=== PATIENT | male | born 1970 | race African-American/Black ===

== ENCOUNTER 2016-11-28 16:22 | Emergency (ER) | payer OTHER ==
[~2016-11-28] VITALS: Ht 177.8 cm; Wt 80.0 kg
[2016-11-28 16:36] VITALS: BP 104/88; PULSE 82; RESP 16; TEMP 98; O2SAT 96
== END 2016-11-28 18:56 | disposition left against medical advice (07) ==
LOC: NEPJ 16:22
DX: Z53.21 Procedure and treatment not carried out due to patient leaving prior to being seen by health care provider (principal)
CPT/HCPCS: 99281

== ENCOUNTER 2016-12-06 02:59 | Emergency (ER) | payer OTHER ==
[2016-12-06 03:14] VITALS: BP 135/65; PULSE 85; RESP 14; TEMP 98.5; O2SAT 100
[2016-12-06] MEDS ORDERED: TRAZ300T2 PO (03:18)
--- NOTE | 2016-12-06 03:32 | PD ---
HPI Chief Complaint: Medical Clearance Time Seen by Provider: 03:29 Travel History International Travel<30 days: No Contact w/Intl Traveler<30days: No Traveled to known affect area: No History of Present Illness HPI 46-year-old black male presents to emergency department by EMS requesting a refill of his trazodone for his schizophrenia. This is a patient who had been seen in the emergency department earlier this past week. The patient has no other medical complaints except wanting 10 blankets and a pizza. [facility] Past Medical History Narrative Medical sCHIZOPHRENIA Hx Anticoagulant Therapy: No Cardiovascular Problems: No Chemotherapy: No Cerebrovascular Accident: No Diabetes: No Respiratory: No Tetanus Vaccination: < 5 Years Past Surgical History Surgical History: No Previous Surgery Hysterectomy: No Social History Alcohol Use: Yes Tobacco Use: Yes Substance Use: Yes Allergies-Medications (Allergen,Severity, Reaction): Coded Allergies: No Known Allergies (Unverified , 12/06/16) Reported Meds & Prescriptions Reported Meds & Active Scripts Active Reported Trazodone (Trazodone HCl) 300 Mg Tab 300 Mg PO HS Review of Systems Except as stated in HPI: all other systems reviewed are Neg Psychiatric: Positive: Substance Abuse, No: Anxiety, Depression, Suicidal Ideations, Disorder of Thought, Mood Disorder, Homicidal Ideation Physical Exam Narrative GENERAL: Well-nourished, well-developed patient. SKIN: Warm and dry. HEAD: Normocephalic and atraumatic. EYES: No scleral icterus. No injection or drainage. ENT: No nasal drainage noted. Mucous membranes pink. Airway patent. NECK: Supple, trachea midline. Moves head freely without obvious discomfort. CARDIOVASCULAR: Regular rate and rhythm without murmurs, gallops, or rubs. RESPIRATORY: Breath sounds equal bilaterally. No accessory muscle use. GASTROINTESTINAL: Abdomen soft, non-tender, nondistended. EXTREMITIES: No cyanosis or edema. Patient has red toenail [place] BACK: Nontender without obvious deformity. No CVA tenderness. NEURO: Patient is alert and oriented. no sensorimotor deficits. Nonfocal. Normal speech. PSYCH: No delusions. No auditory or visual hallucinations. Data Data Last Documented VS Vital Signs Date Time Temp Pulse Resp B/P Pulse Ox O2 Delivery O2 Flow Rate FiO2 12/06/16 03:14 98.5 85 14 135/65 100 MDM Medical Decision Making Medical Screen Exam Complete: Yes Emergency Medical Condition: Yes Medical Record Reviewed: Yes Differential Diagnosis MDM: High Differential diagnoses: Schizophrenia, schizoaffective disorder, bipolar, anxiety, depression, adjustment reaction, mood disorder NOS, ODD, depressive disorder NOS, dementia, dementia with agitation, psychosis NOS, substance induced mood disorder, intermittent explosive disorder, Asperger syndrome, infection,electrolyte abnormality, malingering. Narrative Course This is schizophrenia. The patient is advised to follow-up with [employer]. Diagnosis Primary Impression: Schizophrenia Qualified Code: F20.5 - Residual schizophrenia Patient Instructions: General Instructions Additional Instructions: Rest. Increase fluids. Avoid alcohol. Avoid illegal substances. Follow-up with [facility] [employer] [employer] Do not operate a car or any heavy machinery under the influence of alcohol or drugs. Follow-up with a medical doctor this week. Return to the ER for emergencies Med/Other Pt SpecificInfo: No Meds Exist/No RX given Disposition: 01 DISCHARGE HOME Condition: Stable [place] Dec 06, 2016 03:32
== END 2016-12-06 03:40 | disposition home or self-care (01) ==
LOC: NEPB 02:59
DX: F20.5 Residual schizophrenia (principal); Z76.0 Encounter for issue of repeat prescription
CPT/HCPCS: 99283